=== PATIENT | female | born 1940 | race Caucasian/White ===

== ENCOUNTER 2016-09-16 12:11 | Inpatient (IN) ==
--- NOTE | 2016-09-16 12:54 | Emergency Department Note ---
Disposition Clinical Impression: New onset atrial fibrillation Chest pain Qualifiers: Chest pain type: other chest pain Qualified Code(s): R07.89 - Other chest pain ; R07.8 - Other chest pain Disposition: Admitted As Inpatient Referrals: John Madison Jr, MD [Primary Care Provider] - Forms: ED Satisfaction Letter Chest Pain HPI - General Chief Complaint: ED Chest Pain Stated Complaint: chest pain, roman Time Seen by Provider: 09/16/16 12:14 Source: patient, EMS Limitations: no limitations Vital Signs Reviewed: Yes Nursing Notes Reviewed: Yes - History of Present Illness Pt complaint: chest pain Onset (ago): day(s) (3) Duration: intermittent Onset: during rest Severity scale (1-10): 5 Quality: tightness Pain Radiation: none Improves with: nothing Worsens with: nothing Associated symptoms: Reports: dyspnea Treatments prior to arrival chest pain: none - Related Data Allergies Allergy/AdvReac Type Severity Reaction Status Date / Time Tetracycline AdvReac Difficulty Verified 09/16/16 12:38 Breathing tape AdvReac See Uncoded 09/16/16 12:38 Comments All systems ED: reviewed and negative except as stated. Constitutional: Denies: fever, chills Respiratory: Denies: hemoptysis, stridor Chest Pain PMH - Past Medical History Medical history: Reports: arthritis, asthma, coronary artery disease, diabetes, hyperlipidemia, hypertension Surgical history: Reports: angioplasty/stent - Social History Smoking Status: Never smoker Alcohol use: Reports: none Drug use: Reports: none Physical Exam - General Limitations: no limitations General appearance: alert - Head Head exam: atraumatic, normocephalic, normal inspection - Eye Eye exam: Present: normal appearance, PERRL, EOMI - Expanded Eye Exam Pupils: Left: reactive - ENT ENT exam: normal exam, normal oropharynx, mucous membranes moist - Expanded ENT Exam External ear exam: Present: normal external inspection Mouth exam: Present: normal external inspection Teeth exam: Present: normal inspection Throat exam: Present: normal inspection - Neck Neck exam: Present: normal inspection, full ROM, trachea midline - Chest Chest inspection: Present: normal inspection, symmetric chest wall rise - Respiratory Respiratory exam: Present: normal lung sounds bilaterally - Cardiovascular Cardiovascular exam: Present: tachycardia, irregular rhythm - Abdominal Exam Abdominal exam: Present: soft, Non-Tender. Absent: tenderness, distention, guarding, rebound, rigidity - Extremities Exam Extremities exam: Present: normal inspection, full ROM. Absent: tenderness, pedal edema - Expanded Upper Extremity Exam Shoulder exam: Present: normal inspection, full ROM Arm exam: Present: normal inspection, full ROM Elbow exam: Present: normal inspection, full ROM Forearm/Wrist exam: Present: normal inspection, full ROM Hand exam: Present: normal inspection, full ROM Vascular exam: Normal: capillary refill, radial pulse - Expanded Lower Extremity Exam Hip/Pelvis exam: Present: normal inspection, full ROM Upper leg exam: Present: normal inspection, full ROM Knee exam: Present: normal inspection, full ROM Lower leg exam: Present: normal inspection, full ROM Ankle exam: Present: normal inspection, full ROM Foot/toe exam: Present: normal inspection, full ROM Neurovascular/Tendon exam: Absent: motor deficit, sensory deficit, tendon deficit - Back Exam Back exam: Present: normal inspection, full ROM. Absent: tenderness - Neurological Exam Neurological exam: Present: alert, oriented X3 - Expanded Neurological Exam Patient oriented to: Present: person, place, time Coma Scale Eye Opening: Spontaneous Coma Scale Motor Response: Obeys Commands Coma Scale Verbal Response: Oriented Coma Scale Total: 15 - Psychiatric Psychiatric exam: Present: normal affect, normal mood - Skin Skin exam: Present: warm, dry, intact, normal color Course Vital Signs Temperature 98.3 F 09/16/16 12:12 Pulse Rate 109 09/16/16 12:12 Respiratory Rate 18 09/16/16 12:12 Blood Pressure 91/72 09/16/16 12:12 O2 Sat by Pulse Oximetry 96 09/16/16 12:12 Temperature 98.3 F 09/16/16 12:12 Pulse Rate 113 09/16/16 13:27 Respiratory Rate 18 09/16/16 13:27 Blood Pressure 119/59 09/16/16 13:27 O2 Sat by Pulse Oximetry 94 L 09/16/16 13:27 Oxygen Delivery Oxygen Delivery Nasal Cannula Chest Pain - Differential Diagnosis Likely: stable angina, unstable angina pectoris, atypical chest pain, st elevation myocardial infraction, chest pain - Medical Records Medical records reviewed: Yes I reviewed the patient's medical records. - Lab Data Lab results reviewed: Yes I reviewed the patient's lab results. Result diagrams: 09/16/16 12:54 09/16/16 12:54 Lab Results 09/16/16 09/16/1609/16/17 Range/Units 12:54 12:54 12:54 WBC (4.3-11.1) K/mcL RBC (3.82-4.97) M/mcL Hgb (11.5-15.4) g/dL Hct (35.3-44.9) % MCV (83.0-100.0) fL MCH (28.0-33.3) pg MCHC (31.6-35.5) g/dL RDW (11.5-14.5) % Plt Count (140-400) K/mcL MPV (9.4-12.4) fL Immature Gran % (0-4) % Seg Neutrophils % % Lymphocytes % % Monocytes % % Eosinophils % % Basophils % % Neutrophils # (1.6-8.9) K/mcL Lymphocytes # (0.6-4.6) K/mcL Monocytes # (0.0-1.3) K/mcL Eosinophils # (0.0-0.6) K/mcL Basophils # (0.0-0.2) K/mcL Immature Plt Fraction (1.1-6.1) % PT 11.6 (9.4-12.1) Seconds INR 1.1 APTT 28.3 (26.0-36.0) Seconds Sodium (136-145) mEq/L Potassium (3.5-4.5) mEq/L Chloride (98-109) mEq/L Carbon Dioxide (19-29) mEq/L BUN (7-20) mg/dL Creatinine (0.57-1.11) mg/dL Est GFR ( Amer) (> 60) Est GFR (Non-Af Amer) (> 60) BUN/Creatinine Ratio (6-26) Glucose (70-99) mg/dL Calculated Osmolality (280-300) Calcium (8.6-10.8) mg/dL Troponin I (0-0.03) ng/mL B-Natriuretic Peptide 378 H (0-100) pg/mL Lipase 18 (8-78) Units/L 09/16/16 09/16/16 09/16/16 Range/Units 12:54 12:54 12:54 WBC 13.5 H (4.3-11.1) K/mcL RBC 5.14 H (3.82-4.97) M/mcL Hgb 14.6 (11.5-15.4) g/dL Hct 46.1 H (35.3-44.9) % MCV 89.7 (83.0-100.0) fL MCH 28.4 (28.0-33.3) pg MCHC 31.7 (31.6-35.5) g/dL RDW 14.6 H (11.5-14.5) % Plt Count 214 (140-400) K/mcL MPV 10.6 (9.4-12.4) fL Immature Gran % 0.4 (0-4) % Seg Neutrophils % 82.0 % Lymphocytes % 8.2 % Monocytes % 7.7 % Eosinophils % 1.3 % Basophils % 0.4 % Neutrophils # 11.1 H (1.6-8.9) K/mcL Lymphocytes # 1.1 (0.6-4.6) K/mcL Monocytes # 1.0 (0.0-1.3) K/mcL Eosinophils # 0.2 (0.0-0.6) K/mcL Basophils # 0.1 (0.0-0.2) K/mcL Immature Plt Fraction 2.1 (1.1-6.1) % PT (9.4-12.1) Seconds INR APTT (26.0-36.0) Seconds Sodium 141 (136-145) mEq/L Potassium 4.5 (3.5-4.5) mEq/L Chloride 111 H (98-109) mEq/L Carbon Dioxide 21 (19-29) mEq/L BUN 47 H (7-20) mg/dL Creatinine 1.70 H (0.57-1.11) mg/dL Est GFR ( Amer) 36 L (> 60) Est GFR (Non-Af Amer) 29 L (> 60) BUN/Creatinine Ratio 28 H (6-26) Glucose 237 H (70-99) mg/dL Calculated Osmolality 312 H (280-300) Calcium 8.9 (8.6-10.8) mg/dL Troponin I 0.01 (0-0.03) ng/mL B-Natriuretic Peptide (0-100) pg/mL Lipase (8-78) Units/L - Radiology Data Radiology results reviewed: Yes I reviewed the patient's radiology results. - EKG Data EKG attestation: Yes I reviewed and interpreted this EKG. Rate: tachycardia (118) Rhythm: A.Fib Interpretation: nonspecific ST-T wave changes Critical Care Time Critical Care Time: Yes Total Critical Care Time: 35 Attestation: Critical care performed: Time is exclusive of separately billable procedures. Time includes: direct patient care, patient reassessment, coordination of patient care, interpretation of data (laboratory data, radiology data, and respiratory data), review of patient's medical records, medical consultation and documentation of patient care. Procedures included in critical care time: Procedures excluded from critical care time:
[2016-09-16 13:04] LABS: Basophils # 0.1 K/mcL (0.0-0.2); Basophils % 0.4 %; Eosinophils # 0.2 K/mcL (0.0-0.6); Eosinophils % 1.3 %; Hematocrit 46.1 % (35.3-44.9); Hemoglobin 14.6 g/dL (11.5-15.4); Immature Granulocytes % 0.4 % (0-4); Immature Platelets 2.1 % (1.1-6.1); Lymphocytes # 1.1 K/mcL (0.6-4.6); Lymphocytes % 8.2 %; Mean Corpuscular HGB Conc 31.7 g/dL (31.6-35.5); Mean Corpuscular Hemoglobin 28.4 pg (28.0-33.3); Mean Corpuscular Volume 89.7 fL (83.0-100.0); Mean Platelet Volume 10.6 fL (9.4-12.4); Monocytes % 7.7 %; Neutrophils # 11.1 K/mcL (1.6-8.9); Platelet Count 214 K/mcL (140-400); Red Blood Count 5.14 M/mcL (3.82-4.97); Red Cell Distribution Width 14.6 % (11.5-14.5)
[2016-09-16 13:12] LABS: INR 1.1; Prothrombin Time 11.6 Seconds (9.4-12.1)
[2016-09-16 13:15] LABS: Activated Partial Thrombo Time 28.3 Seconds (26.0-36.0)
[2016-09-16 13:19] LABS: Calcium 8.9 mg/dL (8.6-10.8); Potassium 4.5 mEq/L (3.5-4.5)
[2016-09-16] MEDS ORDERED: *HR* Enoxaparin 120 MG/0.8 ML SYRINGE SQ STA (13:38)
[2016-09-16] MEDS ORDERED: Naloxone 0.4 MG/ML INJ IVP PRN (18:12)
[2016-09-16] MEDS ORDERED: MOM Conc 10 ML UD.LIQ PO PRN (18:12)
[2016-09-16] MEDS ORDERED: *HR* Dextrose 50 % in Water (Syg) 50 ML SYRINGE IVP PRN (18:23)
[2016-09-16] MEDS ORDERED: Dextrose Gel 15 GM PO PRN ×2 (18:23)
[2016-09-16] MEDS ORDERED: D5% in Water 1,000 ML IVC PRN (18:23)
[2016-09-16] MEDS ORDERED: Furosemide 20 MG/2 ML VIAL IVP ONE (18:32)
[2016-09-16] MEDS ORDERED: GI Cocktail 40 ML EACH PO ONE (18:36)
[2016-09-16 19:19] LABS: Hemoglobin A1C 8.6 %
[2016-09-16] MEDS: Insulin LISPRO 300 UNITS/3 ML VIAL SQ SCH (20:16)
--- NOTE | 2016-09-16 21:29 | Internal Med History&Physical ---
<Yarelis Almanza - Last Filed: 09/17/16 00:43> Date of Encounter: 09/16/16 Time of Encounter: 21:22 Assessment and Plan (1) Chest pain Current visit: Yes Status: Acute Patient complaining of chest pain and shortness of breath for 3 days. She was found to be in afib with RVR, however, she reverted to normal sinus spontaneously, and her chest pain persists. Troponin negative at 0.01. BNP elevated at 378. Differential includes acid reflux, CHF, and ACS continuous medical lab director serial troponins echocardiogram one time dose of GI cocktail ordered, and omeprazole daily started. 20mg of lasix IVP once ordered. Qualifiers: Chest pain type: precordial pain Qualified Code(s): R07.2 - Precordial pain (2) Type 2 diabetes mellitus Current visit: Yes Status: Acute Not well controlled as evidenced by Hgb A1c of diabetic, heart healthy diet check blood sugars ACHS continue home basal dose of insulin 9u Levemir BID 30u Lantus TIDWM plus sliding scale correction dose ACHS hypoglycemic protocol. Qualifiers: Diabetes mellitus complication status: with kidney complications Diabetes mellitus complication detail: with chronic kidney disease Diabetes mellitus intermediate project manager insulin use: with custodial use Chronic kidney disease stage: stage 3 (moderate) Qualified Code(s): E11.22 - Type 2 diabetes mellitus with diabetic chronic kidney disease; N18.3 - Chronic kidney disease, stage 3 ( moderate); Z79.4 - exterminator helper termite (current) use of insulin (3) New onset atrial fibrillation Current visit: Yes Status: Acute Patient reporting chest pain and SOB for last 3 days. EKG revealed Afib with RVR, however she returned to sinus rhythm spontaneously. Weight based lovenox given in ED. Continuous medical lab director. If she reverts to afib, will start cardizem drip. Cardiology consulted for anticoagulation recommendations. (4) Chronic kidney disease Current visit: Yes Status: Acute Patient with Cr of 1.7 today. 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 Chart review revealed Creatinine of 1.5-1.6 in 2013, so 1.7 is not off from previous baseline. Avoid NSAIDs and nephrotoxins She would benefit from outpatient follow up with nephrology. Qualifiers: Chronic kidney disease stage: stage 3 (moderate) Qualified Code(s): N18.3 - Chronic kidney disease, stage 3 (moderate) (5) Sleep apnea Current visit: Yes Status: Acute Respiratory therapy consulted for CPAP. Qualifiers: Sleep apnea type: obstructive Qualified Code(s): G47.33 - Obstructive sleep apnea (adult) (pediatric) (6) Leukocytosis Current visit: Yes Status: Acute Patient with WBC of 13.5. Afebrile. CXR not concerning for pneumonia. May be reactive, but UA with culture ordered. Qualifiers: Leukocytosis type: unspecified Qualified Code(s): D72.829 - Elevated white blood cell count, unspecified (7) DVT prophylaxis Current visit: Yes Status: Acute Up to chair BID anti-embolic stockings Patient received a weight based dose of lovenox in ED for her new Afib. Internal Medicine - H&P: HPI Chief complaint: chest pain Admitted From: Emergency Dept Plans for Post Hospital Care: Home History of present illness: Ms. Diaz is a 76 year old female with COPD, coronary artery disease, type 2 diabetes, hypertension, hyperlipidemia, chronic kidney disease presented to the emergency department today with complaint of chest pain and shortness of breath for 3 days. She reports she has constant dull ache in the middle of her chest with occasional increase in pain that is sharp and radiates to her left jaw. She also reports fatigue, headache, postnasal drip, and nausea. She denies any abdominal pain, diarrhea, lightheadedness, palpitations, cough. She denies any fever, chills, sweats. Evaluation in the emergency department included a chest x-ray which showed pulmonary congestion. White blood cell count was elevated to 13.5. Creatinine was 1.7, but consistent with her baseline creatinine of 1.6 from 2013 and with her history of chronic kidney disease. BNP was elevated at 378. Troponin was negative at 0.01. EKG showed patient was in A. fib with RVR, but returned to sinus rhythm spontaneously. On exam, patient is morbidly obese, no acute distress, alert and oriented. Heart has regular rhythm and rate at this time. Past Med Surg Social Fam HX - Past Medical History Medical history: arthritis, asthma, coronary artery disease, diabetes, hyperlipidemia, hypertension - Past Surgical History Surgical History: angioplasty/stent, appendectomy, cholecystectomy - Social History Smoking Status: Never smoker Smokeless Tobacco Status: No Alcohol use: none Drug use: none - Family History Mother Daughter Living Status: Age at : 96 Cause of : "old age" dementia Father Living Status: Age at : 21 Cause of : WWII Internal Medicine - H&P: Meds Amlodipine [Norvasc] 5 mg PO DAILY 09/16/16 [History] Aspirin 81 mg PO DAILY 09/16/16 [History] Atenolol/Chlorthalidone [Tenoretic 50 Tablet] 1 tab PO DAILY 09/16/16 [History] Calcitriol [Rocaltrol] 0.25 mcg PO DAILY 09/16/16 [History] Captopril [Captopril] 50 mg PO DAILY 09/16/16 [History] Cyclobenzaprine [Flexeril] 10 mg PO BID 09/16/16 [History] Duloxetine HCl [Cymbalta] 60 mg PO DAILY 09/16/16 [History] Ergocalciferol (VITAMIN D2) [Vitamin D2] 50,000 unit PO QWEEK 09/16/16 [History] HYDROcodone/Acet 10/325 mg [[place] 10-325 mg] 1 tab PO BID PRN 09/16/16 [History] Insulin Glargine,Hum.rec.anlog [Lantus Solostar] 9 unit SQ BID 09/16/16 [History ] Insulin LISPRO [Humalog] 40 unit SQ TID 09/16/16 [History] Isosorbide MONOnitrate (24 HR) [Imdur] 60 mg PO DAILY 09/16/16 [History] Levothyroxine Sodium [Levo-T] 200 mcg PO DAILY 09/16/16 [History] Simvastatin [Zocor] 40 mg PO DAILY 09/16/16 [History] Zolpidem [Ambien] 10 mg PO HS 09/16/16 [History] Allergies Tetracycline Adverse Reaction (Verified 09/16/16 12:38) Difficulty Breathing tape Adverse Reaction (Uncoded 09/16/16 12:38) See Comments All Systems PM: A 10-system review of systems was performed and is negative for pertinent findings except as documented above in the HPI. - Constitutional Constitutional: no chills, no fever(s), no night sweats - EENT Eyes: no change in vision, no discharge, no pain, no photophobia Ears: no ear discharge, no ear pain, no tinnitus Nose, mouth and throat: post-nasal drip, no dysphagia, no nasal discharge, no neck pain, no sore throat - Cardiovascular Cardiovascular ROS IM: chest pain, dyspnea, no diaphoresis, no lightheadedness, no palpitations, no syncope - Respiratory Respiratory: dyspnea, no cough, no wheezing, no excessive phlegm production - Gastrointestinal Gastrointestinal: no abdominal pain, no diarrhea, no hematemesis, no hematochezia, no melena, no nausea, no vomiting - Genitourinary Genitourinary: no change in urinary stream, no dysuria, no flank pain, no hematuria - Musculoskeletal Musculoskeletal ROS IM: no numbness, no tingling - Integumentary Integumentary IM: no rash, no unusual bruising - Neurological Neurological ROS: no confusion, no convulsions, no focal weakness, no numbness, no tingling, no tremor(s) - Hematologic/Lymphatic Hematologic/Lymphatic: no easy bruising - Constitutional Vitals: Temp Pulse Resp BP Pulse Ox 98.3 F 85 16 119/74 100 09/16/16 15:06 09/16/16 15:06 09/16/16 15:06 09/16/16 15:06 09/16/16 15:06 General appearance: Present: A&O X 3, morbidly obese, pleasant, no acute distress - Head Head exam: Present: atraumatic, normocephalic - Eye Eye exam: Present: PERRL, conjuntiva pink, sclera anicteric Pupils: Present: PERRL - Neck Neck exam general surgery: Present: supple, trachea midline. Absent: lymphadenopathy - Respiratory Respiratory exam: Present: decreased breath sounds, CTAB. Absent: accessory muscle use, rales, rhonchi, wheezes - Cardiovascular Cardiovascular exam: Present: RRR, +S1, +S2. Absent: diastolic murmur, gallop, rubs, systolic murmur - GI/Abdominal GI/Abdominal exam: Present: normal bowel sounds, soft, no peritoneal signs. Absent: distended, tenderness - Extremities Exam Extremities exam: Present: warm, radial pulses palpable and symetrical. Absent : calf tenderness, cyanotic, pedal edema - Neurological Exam Neurological exam: Present: CN II-XII intact, oriented X3, no focal deficits. Absent: facial droop, speech deficit - Skin Skin exam: Present: dry, intact Internal Med - H&P Results - Labs CBC & Chem 7: 09/16/16 12:54 09/16/16 12:54 Labs: Cardiac Enzymes All Lab Results (24 Hours) 09/16/16 09/16/16 09/16/16 Range/Units 12:54 12:54 12:54 WBC (4.3-11.1) K/mcL RBC (3.82-4.97) M/mcL Hgb (11.5-15.4) g/dL Hct (35.3-44.9) % MCV (83.0-100.0) fL MCH (28.0-33.3) pg MCHC (31.6-35.5) g/dL RDW (11.5-14.5) % Plt Count (140-400) K/mcL MPV (9.4-12.4) fL Immature Gran % (0-4) % Seg Neutrophils % % Lymphocytes % % Monocytes % % Eosinophils % % Basophils % % Neutrophils # (1.6-8.9) K/mcL Lymphocytes # (0.6-4.6) K/mcL Monocytes # (0.0-1.3) K/mcL Eosinophils # (0.0-0.6) K/mcL Basophils # (0.0-0.2) K/mcL Immature Plt Fraction (1.1-6.1) % PT 11.6 (9.4-12.1) Seconds INR 1.1 APTT 28.3 (26.0-36.0) Seconds Sodium (136-145) mEq/L Potassium (3.5-4.5) mEq/L Chloride (98-109) mEq/L Carbon Dioxide (19-29) mEq/L BUN (7-20) mg/dL Creatinine (0.57-1.11) mg/dL Est GFR ( Amer) (> 60) Est GFR (Non-Af Amer) (> 60) BUN/Creatinine Ratio (6-26) Glucose (70-99) mg/dL Est Mean Plasma Glucose mg/dl Hemoglobin A1c ( - 5.6) % Calculated Osmolality (280-300) Calcium (8.6-10.8) mg/dL Troponin I (0-0.03) ng/mL B-Natriuretic Peptide 378 H (0-100) pg/mL Lipase 18 (8-78) Units/L TSH (0.350-4.840) mcIU/mL 09/16/16 09/16/16 09/16/16 Range/Units 12:54 12:54 12:54 WBC 13.5 H (4.3-11.1) K/mcL RBC 5.14 H (3.82-4.97) M/mcL Hgb 14.6 (11.5-15.4) g/dL Hct 46.1 H (35.3-44.9) % MCV 89.7 (83.0-100.0) fL MCH 28.4 (28.0-33.3) pg MCHC 31.7 (31.6-35.5) g/dL RDW 14.6 H (11.5-14.5) % Plt Count 214 (140-400) K/mcL MPV 10.6 (9.4-12.4) fL Immature Gran % 0.4 (0-4) % Seg Neutrophils % 82.0 % Lymphocytes % 8.2 % Monocytes % 7.7 % Eosinophils % 1.3 % Basophils % 0.4 % Neutrophils # 11.1 H (1.6-8.9) K/mcL Lymphocytes # 1.1 (0.6-4.6) K/mcL Monocytes # 1.0 (0.0-1.3) K/mcL Eosinophils # 0.2 (0.0-0.6) K/mcL Basophils # 0.1 (0.0-0.2) K/mcL Immature Plt Fraction 2.1 (1.1-6.1) % PT (9.4-12.1) Seconds INR APTT (26.0-36.0) Seconds Sodium 141 (136-145) mEq/L Potassium 4.5 (3.5-4.5) mEq/L Chloride 111 H (98-109) mEq/L Carbon Dioxide 21 (19-29) mEq/L BUN 47 H (7-20) mg/dL Creatinine 1.70 H (0.57-1.11) mg/dL Est GFR ( Amer) 36 L (> 60) Est GFR (Non-Af Amer) 29 L (> 60) BUN/Creatinine Ratio 28 H (6-26) Glucose 237 H (70-99) mg/dL Est Mean Plasma Glucose mg/dl Hemoglobin A1c ( - 5.6) % Calculated Osmolality 312 H (280-300) Calcium 8.9 (8.6-10.8) mg/dL Troponin I 0.01 (0-0.03) ng/mL B-Natriuretic Peptide (0-100) pg/mL Lipase (8-78) Units/L TSH (0.350-4.840) mcIU/mL 09/16/16 09/16/16 09/16/16 Range/Units 18:56 18:56 19:59 WBC (4.3-11.1) K/mcL RBC (3.82-4.97) M/mcL Hgb (11.5-15.4) g/dL Hct (35.3-44.9) % MCV (83.0-100.0) fL MCH (28.0-33.3) pg MCHC (31.6-35.5) g/dL RDW (11.5-14.5) % Plt Count (140-400) K/mcL MPV (9.4-12.4) fL Immature Gran % (0-4) % Seg Neutrophils % % Lymphocytes % % Monocytes % % Eosinophils % % Basophils % % Neutrophils # (1.6-8.9) K/mcL Lymphocytes # (0.6-4.6) K/mcL Monocytes # (0.0-1.3) K/mcL Eosinophils # (0.0-0.6) K/mcL Basophils # (0.0-0.2) K/mcL Immature Plt Fraction (1.1-6.1) % PT (9.4-12.1) Seconds INR APTT (26.0-36.0) Seconds Sodium (136-145) mEq/L Potassium (3.5-4.5) mEq/L Chloride (98-109) mEq/L Carbon Dioxide (19-29) mEq/L BUN (7-20) mg/dL Creatinine (0.57-1.11) mg/dL Est GFR ( Amer) (> 60) Est GFR (Non-Af Amer) (> 60) BUN/Creatinine Ratio (6-26) Glucose (70-99) mg/dL Est Mean Plasma Glucose 200 mg/dl Hemoglobin A1c 8.6 H ( - 5.6) % Calculated Osmolality (280-300) Calcium (8.6-10.8) mg/dL Troponin I 0.01 (0-0.03) ng/mL B-Natriuretic Peptide (0-100) pg/mL Lipase (8-78) Units/L TSH 0.026 L (0.350-4.840) mcIU/mL - Diagnostic Studies Chest x-ray Additional comments: Chest X-Ray 09/16/16 12:14 IMPRESSION: 1. Moderate cardiomegaly with mild vascular congestive changes. 2. Chronic asymmetric elevation of the right diaphragm. D/ / 09/16/2016 13:01:58 Parish Morrissey MD / Marbella Krishnan Interpreting Provider: Parish Morrissey MD <Bernabe Edmondson - Last Filed: 09/17/16 04:59> Internal Medicine - H&P: HPI History of present illness: Ms. Diaz is a 76 year old female All Systems PM: A 10-system review of systems was performed and is negative for pertinent findings except as documented above in the HPI. - Constitutional Vitals: Temp Pulse Resp BP Pulse Ox 98.6 F 80 25 107/57 99 09/17/16 00:00 09/17/16 00:00 09/17/16 00:43 09/17/16 00:00 09/17/16 00:43 Internal Med - H&P Results - Labs CBC & Chem 7: 09/17/16 01:18 09/16/16 12:54 Labs: Short CBC 09/17/16 Range/Units 01:18 WBC 10.6 (4.3-11.1) K/mcL Hgb 13.3 (11.5-15.4) g/dL Hct 41.7 (35.3-44.9) % Plt Count 191 (140-400) K/mcL Neutrophils # 7.1 (1.6-8.9) K/mcL Cardiac Enzymes 09/16/16 09/17/16 Range/Units 18:56 01:18 Troponin I 0.01 0.00 (0-0.03) ng/mL - Attending Attestation I examined this patient and my medical decision-making was reviewed with the BRANCH MECHANIC/PA/Advanced Practice Nurse/Resident Physician. I agree with the documented findings, disposition and treatment plan as described except to the extent set forth below. Chest pain, new onset A. fib. cardiology consultation. Telemetry monitoring.
[2016-09-16] MEDS: Insulin DETEMIR 100 UNIT/ML X5UNITS SQ SCH (22:31)
[2016-09-17] MEDS: Insulin LISPRO 300 UNITS/3 ML VIAL SQ SCH ×8 (00:16→22:16)
[2016-09-17] MEDS: *HR* Heparin 5,000 UNIT/ML VIAL SQ SCH ×2 (00:18→08:27)
[2016-09-17 01:29] LABS: Basophils % 0.3 %; Eosinophils # 0.2 K/mcL (0.0-0.6); Eosinophils % 1.4 %; Hematocrit 41.7 % (35.3-44.9); Hemoglobin 13.3 g/dL (11.5-15.4); Immature Granulocytes % 0.4 % (0-4); Lymphocytes # 2.1 K/mcL (0.6-4.6); Lymphocytes % 19.4 %; Mean Corpuscular HGB Conc 31.9 g/dL (31.6-35.5); Mean Corpuscular Hemoglobin 28.5 pg (28.0-33.3); Mean Corpuscular Volume 89.5 fL (83.0-100.0); Mean Platelet Volume 10.7 fL (9.4-12.4); Monocytes # 1.2 K/mcL (0.0-1.3); Monocytes % 11.1 %; Neutrophils # 7.1 K/mcL (1.6-8.9); Platelet Count 191 K/mcL (140-400); Red Blood Count 4.66 M/mcL (3.82-4.97); Red Cell Distribution Width 14.7 % (11.5-14.5); Segmented Neutrophils % 67.4 %
[2016-09-17] MEDS ORDERED: Insulin LISPRO 300 UNITS/3 ML VIAL SQ SCH (08:00)
[2016-09-17] MEDS: Isosorbide MONOnitrate (24 HR) 60 MG TAB.ER.24H PO SCH (08:25)
[2016-09-17] MEDS: Aspirin 81 MG TAB.CHEW PO SCH (08:26)
[2016-09-17] MEDS: amLODIPine 5 MG TABLET PO SCH (08:26)
[2016-09-17] MEDS: Insulin DETEMIR 100 UNIT/ML X5UNITS SQ SCH ×2 (08:29→22:08)
[2016-09-17] MEDS: CAPTOPRIL 50 MG PO SCH (08:40)
[2016-09-17] MEDS ORDERED: (Atenolol/Chlorthalidone [Tenoretic 50 Tablet] 1 TAB) PO SCH (09:00)
--- NOTE | 2016-09-17 11:22 | Cardiology Consult Note ---
Date of Encounter: 09/17/16 Time of Encounter: 11:18 Assessment and Plan (1) New onset atrial fibrillation Current Visit: Yes Status: Acute New onset of paroxysmal atrial fibrillation. Telemetry review shows average heart rate 88 bpm, one 7 beat run of SVT, runs of paroxysmal atrial fibrillation. During my exam the patient was initially in normal sinus rhythm and converted to atrial fibrillation with a heart rate in the 90s. She complained of chest pain at that time. She may be symptomatic with her atrial fibrillation. We will DC her atenolol/chlorthalidone and start Cardizem. Increase Cardizem as needed. She is a CHADS VASc=6 (HTN, AGE,gender, diabetes, CAD). Anticoagulation with Coumadin or a NOAC is recommended. Indication, side effects, and use discussed. She does have a fall risk. Ways to minimize fall was discussed. She would like to take anticoagulation. We will start eliquis 5 mg BID. Check TTE. TSH is low- your recommendations are appreciated. (2) Chest pain Current Visit: Yes Status: Acute Atypical chest pain is somewhat reproducible on my exam. Troponins are negative. EKG shows no acute changes. Check TTE. Qualifiers: Chest pain type: precordial pain Qualified Code(s): R07.2 - Precordial pain (3) CAD (coronary artery disease) Current Visit: No Status: Chronic H/o IA and previous PTCA. Continue asa and statin. Changing bb to CCB for better control of afib. Qualifiers: Coronary Disease-Associated Artery/Lesion type: [place] artery [place] vs. transplanted heart: ruby heart Associated angina: angina presence unspecified Qualified Code(s): I25.10 - Atherosclerotic heart disease of [place] coronary artery without angina pectoris Discussion w patient/family: The assessment and plan as outlined above was discussed with the patient and/or family members who expressed understanding and agreement. All questions were answered. Thank you for involving us in the care of your patient. Please call with any questions. History of Present Illness Consult date: 09/17/16 Requesting physician: Bernabe Edmondson Consult reason: New onset atrial fibrillation Chief complaint: Chest pain, fatigue History of present illness: Ms. Diaz is a 76 year old female with a history of CAD status post IA in 2004, status post previous angioplasty in 1989 and 2004, hypertension, hyperlipidemia, diabetes type 2, morbid obesity, sleep apnea who presented with chest pain, shortness of breath, and fatigue. She complains of a midsternal chest heaviness radiating to her left shoulder that occurs at rest and increases with activity. Her discomfort increases with deep breaths and palpation. She reports she has been very tired and sleeps all day long. She presented to the ER where she was found to be in atrial fibrillation with mild RVR. She converted to normal sinus rhythm on her own. She denies previous history of atrial fibrillation. Past Med Surg Social Fam HX - Past Medical History Attestation: Yes The following information was validated with the patient. Medical history: arthritis, asthma, coronary artery disease, diabetes, hyperlipidemia, hypertension, myocardial infarction - Past Surgical History Surgical History: angioplasty/stent, appendectomy, cholecystectomy - Social History Smoking Status: Never smoker Smokeless Tobacco Status: No Alcohol use: none Drug use: none - Family History Mother Daughter Living Status: Age at : 96 Cause of : "old age" dementia Father Living Status: Age at : 21 Cause of : WWII Medications and Allergies Amlodipine [Norvasc] 5 mg PO DAILY 09/16/16 [History] Aspirin 81 mg PO DAILY 09/16/16 [History] Atenolol/Chlorthalidone [Tenoretic 50 Tablet] 1 tab PO DAILY 09/16/16 [History] Calcitriol [Rocaltrol] 0.25 mcg PO DAILY 09/16/16 [History] Captopril [Captopril] 50 mg PO DAILY 09/16/16 [History] Cyclobenzaprine [Flexeril] 10 mg PO BID 09/16/16 [History] Duloxetine HCl [Cymbalta] 60 mg PO DAILY 09/16/16 [History] Ergocalciferol (VITAMIN D2) [Vitamin D2] 50,000 unit PO QWEEK 09/16/16 [History] HYDROcodone/Acet 10/325 mg [[place] 10-325 mg] 1 tab PO BID PRN 09/16/16 [History] Insulin Glargine,Hum.rec.anlog [Lantus Solostar] 9 unit SQ BID 09/16/16 [History ] Insulin LISPRO [Humalog] 40 unit SQ TID 09/16/16 [History] Isosorbide MONOnitrate (24 HR) [Imdur] 60 mg PO DAILY 09/16/16 [History] Levothyroxine Sodium [Levo-T] 200 mcg PO DAILY 09/16/16 [History] Simvastatin [Zocor] 40 mg PO DAILY 09/16/16 [History] Zolpidem [Ambien] 10 mg PO HS 09/16/16 [History] Allergies Tetracycline Adverse Reaction (Verified 09/16/16 12:38) Difficulty Breathing tape Adverse Reaction (Uncoded 09/16/16 12:38) See Comments All Systems Review: A 10-system review of systems was performed and is negative for pertinent findings except as documented above in the HPI. Physical Examination Vital Signs, Last 4 Hours Temp Pulse Resp BP Pulse Ox 09/17/16 07:26 98.3 F 78 19 127/64 96 General: Conversant, No Apparent Distress, Other (Morbidly obese female) HEENT: Atraumatic, Normocephaly, Mucus Membranes Moist Neck: No JVD, Normal carotid pulses Cardiac: Other (Irregularly irregular) Lungs: Normal Breath Sounds, No Wheeze, Rales, Rhonchi Neuro: Alert and responsive, No focal deficits noted Abdomen: Soft, Non-Tender Skin: No rashes noted on visualized skin Musculoskeletal: Other (Chest wall tender to palpation) Extremities: No Clubbing, No Cyanosis, No Edema, Normal Pulses Results 09/17/16 01:18 09/16/16 12:54 Lab Results 09/16/16 09/16/16 09/17/16 18:56 19:59 01:18 WBC Hgb Hct Plt Count Troponin I 0.01 0.00 TSH 0.026 L 09/17/16 01:18 WBC 10.6 Hgb 13.3 Hct 41.7 Plt Count 191 Troponin I TSH - Imaging and Cardiology Echo: pending - EKG Interpretation EKG results cardiology: personally reviewed (Atrial fibrillation with RVR, heart rate 118 bpm, no acute ST changes.) Consult Discharge Plan - Plan Instructions: Atrial Fibrillation (DC), Chest Pain (DC), Diabetes Mellitus Type 2 in Adults (DC)
[2016-09-17] MEDS ORDERED: Diltiazem CD (24hr) 120 MG CAPSULE PO SCH (11:30)
--- NOTE | 2016-09-17 12:24 | ECHO - Doppler Report ---
Echocardiogram Name: Rima Diaz Date of Study: 09/17/2016 Date: 1940 Ht: 64.0 in Medical Record#: [id number] Age: 76 Wt: 391.0 lb Gender: Female BSA: 2.6 Order #: [id number] Location: [facility] Room #: 2NE22 Reading Physician: Dhruv Castro MD, [facility] Skimmer Scoop Operator: Jennifer Joyner Ordering Physician: Yarelis Almanza CNP Primary Physician: John Madison MD Indications: Chest pain Impressions: Technically suboptimal study due to poor echocardiographic windows. Sinus rhythm with paroxysmal atrial fibrillation. Normal LV systolic function, LVEF 55-60%. Mild left ventricular diastolic dysfunction. Normal right ventricular size and function. Mild mitral regurgitation. Unable to estimate RVSP due to lack of TR jet. Left Ventricular Wall Motion: Rest Echo Findings All wall segments showed normal motion. Findings: Study Quality * Technically suboptimal study due to poor echocardiographic windows. ECG Findings * Sinus rhythm with paroxysmal atrial fibrillation. Left Ventricle * Normal LV systolic function, LVEF 55-60%. * Normal LV chamber size and wall thickness. * Mild left ventricular diastolic dysfunction. Right Ventricle * Normal right ventricular size and function. Left Atrium * Normal left atrial size. Right Atrium * Normal right atrial size. Aorta * Normally sized aortic root. Pericardium * There is no pericardial effusion present. IVC * The IVC is not dilated. Aortic Valve * Aortic valve not well visualized. * No aortic stenosis. * No aortic regurgitation. Mitral Valve * Mild mitral annular calcification * No mitral stenosis. * Mild mitral regurgitation. Tricuspid Valve * Tricuspid valve not well visualized. * No tricuspid stenosis. * Trace tricuspid regurgitation. * Unable to estimate RVSP due to lack of TR jet. Pulmonic Valve * Pulmonic valve not well visualized. * No pulmonic stenosis. * Trace pulmonic regurgitation. History Hypertension Diabetes Hypercholesteremia Years 10 Packs 1 08/23/2012 a Previous Echo was performed. Measurements: BP: 127/ 64 2D Normal Values RVIDd: 3.00 cm IVSd: 1.00 cm 0.6 - 1.0 cm LVIDd: 5.20 cm 3.7 - 5.6 cm LVPWd: 1.00 cm 0.6 - 1.1 cm LVIDs: 3.80 cm 1.5 - 3.6 cm AO: 3.20 cm < 4.0 cm LA volume: 62 Updated by Dhruv Castro MD, [facility] on 09/17/2016 12:20:55 PM electronically signed on 09/17/2016 12:21:30 PM with status of Final Wall Motion [place]ño: 1=Normal, 2=Hypokinesis, 3=Akinesis, 4=Dyskinesis, 5=Aneurysmal, 6=Hyperkinetic, X=Not Visualized (Blank)=Missing
[2016-09-17 13:12] LABS: Bilirubin,Urine Negative (Negative); Blood,Urine Small (Negative); Clarity,Urine Cloudy (Clear); Color,Urine Yellow (Yellow); Glucose,Urine (UA) Normal (Normal); Ketones,Urine Negative (Negative); Leukocyte Esterase,Urine Large (Negative); Nitrite,Urine Negative (Negative); Protein,Urine Negative (Neg-Trace); Specific Gravity,Urine 1.018 (1.010-1.025); Urobilinogen,Urine Normal (Normal)
[2016-09-17 13:15] LABS: Bacteria,Urine Moderate per hpf (None-Few); Hyaline Casts,Urine None Seen per lpf (None-Few); Squamous Epithelial Cell,Urine Many per lpf (None-Few); WBC,Urine TNTC per hpf (0-3)
[2016-09-17] MEDS: Furosemide 20 MG TABLET PO SCH (13:33)
[2016-09-17] MEDS: Metoprolol XL (24 HR) Succ 25 MG TAB.ER.24H PO SCH (13:34)
--- NOTE | 2016-09-17 15:06 | Internal Med Progress Note ---
Date of Encounter: 09/17/16 Time of Encounter: 15:06 - Assessment and plan (1) Morbid obesity with BMI of 60.0-69.9, adult Current Visit: Yes Status: Acute Assessment and plan: Outpatient follow-up for weight loss regimen. Bariatric bed. (2) New onset atrial fibrillation Current Visit: Yes Status: Acute Assessment and plan: Discussed the case with cardiology. Start metoprolol and Eliquis. Continue monitoring on telemetry. Follow-up echocardiogram. (3) Type 2 diabetes mellitus Current Visit: Yes Status: Acute Assessment and plan: Insulin Levemir and insulin sliding scale. Qualifiers: Diabetes mellitus complication status: with kidney complications Diabetes mellitus complication detail: with chronic kidney disease Diabetes mellitus supervisor intermediates insulin use: with supervisor intermediates use Chronic kidney disease stage: stage 3 (moderate) Qualified Code(s): E11.22 - Type 2 diabetes mellitus with diabetic chronic kidney disease; N18.3 - Chronic kidney disease, stage 3 ( moderate); Z79.4 - termite treater helper (current) use of insulin (4) Chronic kidney disease Current Visit: Yes Status: Acute Qualifiers: Chronic kidney disease stage: stage 3 (moderate) Qualified Code(s): N18.3 - Chronic kidney disease, stage 3 (moderate) (5) CAD (coronary artery disease) Current Visit: No Status: Chronic Qualifiers: Coronary Disease-Associated Artery/Lesion type: [place] artery [place] vs. transplanted heart: [place] heart Associated angina: angina presence unspecified Qualified Code(s): I25.10 - Atherosclerotic heart disease of [place] coronary artery without angina pectoris (6) Hypothyroidism Current Visit: Yes Status: Acute Assessment and plan: TSH is low. I will check free T4 and T3. Qualifiers: Hypothyroidism type: acquired Qualified Code(s): E03.9 - Hypothyroidism, unspecified - Subjective Interval history: Feels nauseated, no vomiting or abd pain. Denies CP, palpitations. HR now controlled - Constitutional Vitals: Temp Pulse Resp BP Pulse Ox 97.5 F L 87 17 116/61 95 09/17/16 11:45 09/17/16 11:45 09/17/16 11:45 09/17/16 11:45 09/17/16 11:45 General appearance: Present: A&O X 3, morbidly obese, pleasant, no acute distress Exam: Morbidly obese - Respiratory Respiratory exam: Present: CTAB. Absent: accessory muscle use, rales, rhonchi, wheezes - Cardiovascular Cardiovascular exam: Present: RRR, +S1, +S2. Absent: diastolic murmur, gallop, rubs, systolic murmur - GI/Abdominal GI/Abdominal exam: Present: normal bowel sounds, soft, no peritoneal signs. Absent: distended, tenderness Additional comments: Large abdominal pannus - Extremities Exam Extremities exam: Present: warm, radial pulses palpable and symetrical. Absent : calf tenderness, cyanotic, pedal edema - Skin Skin exam: Present: dry, intact Internal Medicine: Result - Labs CBC & Chem 7: 09/17/16 01:18 09/16/16 12:54 Labs: Short CBC 09/17/16 Range/Units 01:18 WBC 10.6 (4.3-11.1) K/mcL Hgb 13.3 (11.5-15.4) g/dL Hct 41.7 (35.3-44.9) % Plt Count 191 (140-400) K/mcL Neutrophils # 7.1 (1.6-8.9) K/mcL Cardiac Enzymes 09/16/16 09/17/16 Range/Units 18:56 01:18 Troponin I 0.01 0.00 (0-0.03) ng/mL Urine 09/17/16 Range/Units 12:45 Urine Color Yellow (Yellow) Urine Clarity Cloudy A (Clear) Urine pH 6.0 (5.0-8.0) pH Units Ur Specific [place] 1.018 (1.010-1.025) Urine Protein Negative (Neg-Trace) mg/dL Urine Glucose (UA) Normal (Normal) mg/dL - ABG Interpretation ABG results: PT/INR, D-dimer PT 11.6 Seconds (9.4-12.1) 09/16/16 12:54 Consult Discharge Plan - Plan Instructions: Atrial Fibrillation (DC), Chest Pain (DC), Diabetes Mellitus Type 2 in Adults (DC) Referrals: John Madison Jr, MD [Primary Care Provider] -
[2016-09-17] MEDS: Ondansetron ODT 4 MG TAB.RAPDIS SL PRN (15:54)
[2016-09-17 16:02] LABS: Renal Epithelial Cells,Urine Few per hpf (None-Few)
[2016-09-17 17:01] LABS: Triiodothyronine (T3) Free 2.2 pg/mL (1.71-3.71); Triiodothyronine (T3) Total 0.5 ng/mL (0.58-1.59)
[2016-09-17] MEDS: APIXABAN 5 MG TABLET PO SCH (22:08)
[2016-09-17] MEDS: *HR* HYDROcodone/Acet 10/325 mg TABLET PO PRN (22:12)
[2016-09-18 07:27] LABS: Calcium 9.2 mg/dL (8.6-10.8); Potassium 4.6 mEq/L (3.5-4.5)
[2016-09-18 07:28] LABS: Basophils % 0.2 %; Eosinophils # 0.3 K/mcL (0.0-0.6); Hematocrit 44.6 % (35.3-44.9); Hemoglobin 14.2 g/dL (11.5-15.4); Immature Granulocytes % 0.5 % (0-4); Lymphocytes # 2.3 K/mcL (0.6-4.6); Mean Corpuscular HGB Conc 31.8 g/dL (31.6-35.5); Mean Corpuscular Hemoglobin 28.6 pg (28.0-33.3); Mean Corpuscular Volume 89.7 fL (83.0-100.0); Mean Platelet Volume 10.8 fL (9.4-12.4); Monocytes # 0.9 K/mcL (0.0-1.3); Monocytes % 10.6 %; Platelet Count 205 K/mcL (140-400); Red Blood Count 4.97 M/mcL (3.82-4.97); Red Cell Distribution Width 14.2 % (11.5-14.5); Segmented Neutrophils % 58.7 %
--- NOTE | 2016-09-18 07:40 | Electrocardiograph Report ---
[place] [id number] Test Date: 2016-09-16 Pat Name: Rima Diaz Department: 104 Room: 2NE22 Gender: F Microfilm Mounter: : 1940 Requested By: Kvng Rodrigues Order Number: [id number] Reading MD: Dallas Ruelas MD Measurements Intervals [employer] Rate: 118 P: [place]: 0 QRS: 14 QRSD: 85 T: 26 QT: 298 QTc: 368 Interpretive Statements ATRIAL FIBRILLATION WITH RAPID VENTRICULAR RESPONSE Electronically Signed On 09-18-2016 7:38:59 EDT by Dallas Ruelas MD
[2016-09-18] MEDS: Insulin LISPRO 300 UNITS/3 ML VIAL SQ SCH ×7 (08:08→21:01)
[2016-09-18] MEDS: Aspirin 81 MG TAB.CHEW PO SCH (10:13)
[2016-09-18] MEDS: amLODIPine 5 MG TABLET PO SCH (10:14)
[2016-09-18] MEDS: Furosemide 20 MG TABLET PO SCH (10:14)
[2016-09-18] MEDS: APIXABAN 5 MG TABLET PO SCH ×2 (10:14→20:27)
[2016-09-18] MEDS: Isosorbide MONOnitrate (24 HR) 60 MG TAB.ER.24H PO SCH (10:14)
[2016-09-18] MEDS: Metoprolol XL (24 HR) Succ 25 MG TAB.ER.24H PO SCH (10:14)
[2016-09-18] MEDS: CAPTOPRIL 50 MG PO SCH (10:19)
[2016-09-18] MEDS: Insulin DETEMIR 100 UNIT/ML X5UNITS SQ SCH ×2 (10:19→20:59)
--- NOTE | 2016-09-18 17:51 | Internal Med Progress Note ---
Date of Encounter: 09/18/16 Time of Encounter: 17:49 - Assessment and plan (1) Morbid obesity with BMI of 60.0-69.9, adult Current Visit: Yes Status: Acute Assessment and plan: Outpatient follow-up for weight loss regimen. Bariatric bed. (2) New onset atrial fibrillation Current Visit: Yes Status: Acute Assessment and plan: Discussed the case with cardiology. Increase metoprolol to 50 mg twice a day. Continue with liquids. Monitor on telemetry. ct eliquis> (3) Type 2 diabetes mellitus Current Visit: Yes Status: Acute Assessment and plan: Insulin Levemir and insulin sliding scale. A1c is 8.6 her diabetes is poorly controlled. Outpatient follow-up for medication adjustment. Qualifiers: Diabetes mellitus complication status: with kidney complications Diabetes mellitus complication detail: with chronic kidney disease Diabetes mellitus manager long term care insulin use: with manager long term care use Chronic kidney disease stage: stage 3 (moderate) Qualified Code(s): E11.22 - Type 2 diabetes mellitus with diabetic chronic kidney disease; N18.3 - Chronic kidney disease, stage 3 ( moderate); Z79.4 - long term care social worker (current) use of insulin (4) Chronic kidney disease Current Visit: Yes Status: Acute Assessment and plan: Creatinine improving from yesterday. Avoid nephrotoxins including NSAIDs. Hold VICKIE inhibitor and ARB. Qualifiers: Chronic kidney disease stage: stage 3 (moderate) Qualified Code(s): N18.3 - Chronic kidney disease, stage 3 (moderate) (5) CAD (coronary artery disease) Current Visit: No Status: Chronic Qualifiers: Coronary Disease-Associated Artery/Lesion type: [place] artery [place] vs. transplanted heart: [place] heart Associated angina: angina presence unspecified Qualified Code(s): I25.10 - Atherosclerotic heart disease of [place] coronary artery without angina pectoris (6) Hypothyroidism Current Visit: Yes Status: Acute Qualifiers: Hypothyroidism type: acquired Qualified Code(s): E03.9 - Hypothyroidism, unspecified - Subjective Interval history: Reports feeling generally IMPROVED FROM Yesterday, denies palpitations and chest pain, denies shortness of breath and nausea has resolved since yesterday. - Constitutional Vitals: Temp Pulse Resp BP Pulse Ox 98.3 F 70 16 132/63 95 09/18/16 16:00 09/18/16 16:00 09/18/16 16:00 09/18/16 16:00 09/18/16 16:00 General appearance: Present: A&O X 3, morbidly obese, pleasant, no acute distress Exam: Morbidly obese - Respiratory Respiratory exam: Present: CTAB. Absent: accessory muscle use, rales, rhonchi, wheezes - Cardiovascular Cardiovascular exam: Present: RRR, +S1, +S2. Absent: diastolic murmur, gallop, rubs, systolic murmur - GI/Abdominal GI/Abdominal exam: Present: normal bowel sounds, soft, no peritoneal signs. Absent: distended, tenderness - Skin Skin exam: Present: dry, intact Internal Medicine: Result - Labs CBC & Chem 7: 09/18/16 06:15 09/18/16 06:15 Labs: Short CBC 09/18/16 Range/Units 06:15 WBC 8.6 (4.3-11.1) K/mcL Hgb 14.2 (11.5-15.4) g/dL Hct 44.6 (35.3-44.9) % Plt Count 205 (140-400) K/mcL Neutrophils # 5.0 (1.6-8.9) K/mcL BMP 09/18/16 06:15 Sodium 141 Potassium 4.6 H Chloride 107 Carbon Dioxide 25 BUN 29 H D Creatinine 1.41 H Glucose 196 H Calcium 9.2 - ABG Interpretation ABG results: PT/INR, D-dimer PT 11.6 Seconds (9.4-12.1) 09/16/16 12:54 Consult Discharge Plan - Plan Instructions: Atrial Fibrillation (DC), Chest Pain (DC), Diabetes Mellitus Type 2 in Adults (DC) Referrals: John Madison Jr, MD [Primary Care Provider] -
[2016-09-18] MEDS ORDERED: *HR* Metoprolol 5 MG/5 ML VIAL IVP ONE (19:52)
--- NOTE | 2016-09-18 20:03 | Internal Med Progress Note ---
Date of Encounter: 09/18/16 Time of Encounter: 13:00 - Assessment and plan (1) Morbid obesity with BMI of 60.0-69.9, adult Current Visit: Yes Status: Acute Assessment and plan: Outpatient follow-up for weight loss regimen. Bariatric bed. (2) New onset atrial fibrillation Current Visit: Yes Status: Acute Assessment and plan: Currently switched back to sinus rhythm per my review her telemetry shows a sinus at 80 bpm. She has gone back and forth into A. fib and sinus. Increase metoprolol to 50 mg daily. Continue with liquids. Monitor on telemetry. ct eliquis> (3) Type 2 diabetes mellitus Current Visit: Yes Status: Acute Assessment and plan: Insulin Levemir and insulin sliding scale. A1c is 8.6 her diabetes is poorly controlled. Outpatient follow-up for medication adjustment. Qualifiers: Diabetes mellitus complication status: with kidney complications Diabetes mellitus complication detail: with chronic kidney disease Diabetes mellitus custodial insulin use: with custodial use Chronic kidney disease stage: stage 3 (moderate) Qualified Code(s): E11.22 - Type 2 diabetes mellitus with diabetic chronic kidney disease; N18.3 - Chronic kidney disease, stage 3 ( moderate); Z79.4 - jail (current) use of insulin (4) Chronic kidney disease Current Visit: Yes Status: Acute Assessment and plan: Creatinine improving from yesterday. Avoid nephrotoxins including NSAIDs. Hold VICKIE inhibitor and ARB. Check creatinine in the morning. Qualifiers: Chronic kidney disease stage: stage 3 (moderate) Qualified Code(s): N18.3 - Chronic kidney disease, stage 3 (moderate) (5) CAD (coronary artery disease) Current Visit: No Status: Chronic Qualifiers: Coronary Disease-Associated Artery/Lesion type: [place] artery [place] vs. transplanted heart: [place] heart Associated angina: angina presence unspecified Qualified Code(s): I25.10 - Atherosclerotic heart disease of [place] coronary artery without angina pectoris (6) Hypothyroidism Current Visit: Yes Status: Acute Assessment and plan: TSH is low. Both free T4 and total T3 are within normal limits which suggests that she is euthyroid. She does not have symptoms of hyper or hypothyroidism or hyperthyroidism. Qualifiers: Hypothyroidism type: acquired Qualified Code(s): E03.9 - Hypothyroidism, unspecified - Subjective Interval history: Reports than generalized weakness and nausea have improved over last 2 days. Her shortness of breath is mild at rest. She has not had any fever. No nausea or vomiting.. - Constitutional Vitals: Temp Pulse Resp BP Pulse Ox 98.3 F 135 18 142/117 94 L 09/18/16 16:00 09/18/16 19:55 09/18/16 19:55 09/18/16 19:55 09/18/16 19:55 General appearance: Present: A&O X 3, morbidly obese, pleasant, no acute distress - Respiratory Respiratory exam: Present: CTAB. Absent: accessory muscle use, rales, rhonchi, wheezes - Cardiovascular Cardiovascular exam: Present: RRR, +S1, +S2. Absent: diastolic murmur, gallop, rubs, systolic murmur - GI/Abdominal GI/Abdominal exam: Present: normal bowel sounds, soft, no peritoneal signs. Absent: distended, tenderness - Skin Skin exam: Present: dry, intact Internal Medicine: Result - Labs CBC & Chem 7: 09/18/16 06:15 09/18/16 06:15 Labs: Short CBC 09/18/16 Range/Units 06:15 WBC 8.6 (4.3-11.1) K/mcL Hgb 14.2 (11.5-15.4) g/dL Hct 44.6 (35.3-44.9) % Plt Count 205 (140-400) K/mcL Neutrophils # 5.0 (1.6-8.9) K/mcL BMP 09/18/16 06:15 Sodium 141 Potassium 4.6 H Chloride 107 Carbon Dioxide 25 BUN 29 H D Creatinine 1.41 H Glucose 196 H Calcium 9.2 - ABG Interpretation ABG results: PT/INR, D-dimer PT 11.6 Seconds (9.4-12.1) 09/16/16 12:54 Consult Discharge Plan - Plan Instructions: Atrial Fibrillation (DC), Chest Pain (DC), Diabetes Mellitus Type 2 in Adults (DC) Referrals: John Madison Jr, MD [Primary Care Provider] -
[2016-09-18] MEDS: Ondansetron ODT 4 MG TAB.RAPDIS SL PRN (20:25)
[2016-09-18] MEDS: *HR* HYDROcodone/Acet 10/325 mg TABLET PO PRN (20:25)
[2016-09-19] MEDS: *HR* HYDROcodone/Acet 10/325 mg TABLET PO PRN (03:20)
[2016-09-19 05:02] LABS: Basophils % 0.5 %; Eosinophils # 0.2 K/mcL (0.0-0.6); Eosinophils % 2.9 %; Hematocrit 43.8 % (35.3-44.9); Hemoglobin 14.2 g/dL (11.5-15.4); Immature Granulocytes % 0.4 % (0-4); Lymphocytes # 2.1 K/mcL (0.6-4.6); Lymphocytes % 24.7 %; Mean Corpuscular HGB Conc 32.4 g/dL (31.6-35.5); Mean Corpuscular Hemoglobin 28.7 pg (28.0-33.3); Mean Corpuscular Volume 88.5 fL (83.0-100.0); Mean Platelet Volume 10.5 fL (9.4-12.4); Monocytes # 0.8 K/mcL (0.0-1.3); Neutrophils # 5.2 K/mcL (1.6-8.9); Platelet Count 216 K/mcL (140-400); Red Blood Count 4.95 M/mcL (3.82-4.97); Segmented Neutrophils % 61.5 %
[2016-09-19 05:16] LABS: Calcium 9.3 mg/dL (8.6-10.8); Potassium 4.5 mEq/L (3.5-4.5)
--- NOTE | 2016-09-19 06:58 | Electrocardiograph Report ---
[place] [id number] Test Date: 2016-09-18 Pat Name: Rima Diaz Department: 111 Room: 2N2 Gender: F Fitness Manager: GENESIS : 1940 Requested By: Moi Roe Order Number: [id number] Reading MD: Dallas Ruelas MD Measurements Intervals [place] Rate: 121 P: [place]: 0 QRS: 25 QRSD: 88 T: 9 QT: 306 QTc: 378 Interpretive Statements ATRIAL FIBRILLATION WITH RAPID VENTRICULAR RESPONSE Electronically Signed On 09-19-2016 6:57:36 EDT by Dallas Ruelas MD
[2016-09-19] MEDS ORDERED: Metoprolol XL (24 HR) Succ 50 MG TAB.ER.24H PO SCH (09:00)
[2016-09-19] MEDS: Furosemide 20 MG TABLET PO SCH (09:14)
[2016-09-19] MEDS: amLODIPine 5 MG TABLET PO SCH (09:14)
[2016-09-19] MEDS: APIXABAN 5 MG TABLET PO SCH (09:14)
[2016-09-19] MEDS: Isosorbide MONOnitrate (24 HR) 60 MG TAB.ER.24H PO SCH (09:14)
[2016-09-19] MEDS: Aspirin 81 MG TAB.CHEW PO SCH (09:14)
[2016-09-19] MEDS: Insulin DETEMIR 100 UNIT/ML X5UNITS SQ SCH (09:15)
[2016-09-19] MEDS: Insulin LISPRO 300 UNITS/3 ML VIAL SQ SCH ×6 (09:15→17:05)
[2016-09-19] MEDS: CAPTOPRIL 50 MG PO SCH (09:16)
[2016-09-19 15:14] VITALS: BP 116/49
--- NOTE | 2016-09-19 15:59 | Discharge Summary ---
Date of Encounter: 09/19/16 Time of Encounter: 11:48 - Discharge Diagnosis (1) Morbid obesity with BMI of 60.0-69.9, adult Priority: Secondary Status: Acute (2) New onset atrial fibrillation Priority: Primary Status: Acute (3) Type 2 diabetes mellitus Priority: Secondary Status: Acute Qualifiers: Diabetes mellitus complication status: with kidney complications Diabetes mellitus complication detail: with chronic kidney disease Diabetes mellitus detention insulin use: with detention use Chronic kidney disease stage: stage 3 (moderate) Qualified Code(s): E11.22 - Type 2 diabetes mellitus with diabetic chronic kidney disease; N18.3 - Chronic kidney disease, stage 3 ( moderate); Z79.4 - [facility] (current) use of insulin (4) Chronic kidney disease Priority: Secondary Status: Acute Qualifiers: Chronic kidney disease stage: stage 3 (moderate) Qualified Code(s): N18.3 - Chronic kidney disease, stage 3 (moderate) (5) CAD (coronary artery disease) Priority: Secondary Status: Chronic Qualifiers: Coronary Disease-Associated Artery/Lesion type: [place] artery [place] vs. transplanted heart: [place] heart Associated angina: angina presence unspecified Qualified Code(s): I25.10 - Atherosclerotic heart disease of [place] coronary artery without angina pectoris (6) Hypothyroidism Priority: Secondary Status: Acute Qualifiers: Hypothyroidism type: acquired Qualified Code(s): E03.9 - Hypothyroidism, unspecified - Discharge Medications Prescriptions: Apixaban [Eliquis] 5 mg PO BID #60 tablet Furosemide [Lasix] 20 mg PO DAILY #30 tablet Metoprolol XL (24 HR) Succ [Toprol Xl] 50 mg PO BID #60 tab.er.24h Home Medications: Aspirin 81 mg PO DAILY 09/16/16 [History] Atenolol/Chlorthalidone [Tenoretic 50 Tablet] 1 tab PO DAILY 09/16/16 [History] Calcitriol [Rocaltrol] 0.25 mcg PO DAILY 09/16/16 [History] Cyclobenzaprine [Flexeril] 10 mg PO BID 09/16/16 [History] Duloxetine HCl [Cymbalta] 60 mg PO DAILY 09/16/16 [History] Ergocalciferol (VITAMIN D2) [Vitamin D2] 50,000 unit PO QWEEK 09/16/16 [History] HYDROcodone/Acet 10/325 mg [[place] 10-325 mg] 1 tab PO BID PRN 09/16/16 [History] Insulin Glargine,Hum.rec.anlog [Lantus Solostar] 9 unit SQ BID 09/16/16 [History ] Insulin LISPRO [Humalog] 40 unit SQ TID 09/16/16 [History] Isosorbide MONOnitrate (24 HR) [Imdur] 60 mg PO DAILY 09/16/16 [History] Levothyroxine Sodium [Levo-T] 200 mcg PO DAILY 09/16/16 [History] Simvastatin [Zocor] 40 mg PO DAILY 09/16/16 [History] Zolpidem [Ambien] 10 mg PO HS 09/16/16 [History] Apixaban [Eliquis] 5 mg PO BID #60 tablet 09/19/16 [Rx] Furosemide [Lasix] 20 mg PO DAILY #30 tablet 09/19/16 [Rx] Metoprolol XL (24 HR) Succ [Toprol Xl] 50 mg PO BID #60 tab.er.24h 09/19/16 [Rx] Allergies/Adverse Reactions: Allergies Tetracycline Adverse Reaction (Verified 09/16/16 12:38) Difficulty Breathing tape Adverse Reaction (Uncoded 09/16/16 12:38) See Comments Procedures/tests Complete & Pending: Procedures Performed prior 72 hours Category Date Time Status ECG 12 lead ECG [ECG] Routine Y 09/18/16 00:50 Completed EV echocardiogram Routine Y 09/17/16 19:45 Completed Date of admission: 09/16/16 18:12 Primary care physician: John Madison Jr, MD Consults: 09/16/16 19:45 Consult to Cardiology [CONS] Routine Comment: Consulting Provider: Cardiology Mary Reason for Consult: 76F with new onset afib, Call Completed: No - Patient Status Disposition: Home, Self-Care Condition: Fair Functional capacity at discharge: uses cane/walker Overall status at discharge: patient is back to baseline - Discharge Instructions Instructions: Metoprolol (By mouth), Apixaban (By mouth), Atrial Fibrillation ( DC), Chest Pain (DC), Diabetes Mellitus Type 2 in Adults (DC) Follow Up With: John Madison Jr, MD [Primary Care Provider] - (attempted to call, patient needs to call for one week follow up) - Diet and Activity Activity: ambulate only with your walker Diet: advance to your usual diet, diabetic diet, low salt diet Hospital course: Ms. Diaz is a 76 year old female with COPD, coronary artery disease, type 2 diabetes, hypertension, hyperlipidemia, chronic kidney disease presented to the emergency department today with complaint of chest pain and shortness of breath for 3 days. She reports she has constant dull ache in the middle of her chest with occasional increase in pain that is sharp and radiates to her left jaw. She also reports fatigue, headache, postnasal drip, and nausea. She denies any abdominal pain, diarrhea, lightheadedness, palpitations, cough. She denies any fever, chills, sweats. Evaluation in the emergency department included a chest x-ray which showed pulmonary congestion. White blood cell count was elevated to 13.5. Creatinine was 1.7, but consistent with her baseline creatinine of 1.6 from 2013 and with her history of chronic kidney disease. BNP was elevated at 378. Troponin was negative at 0.01. EKG showed patient was in A. fib with RVR, but returned to sinus rhythm spontaneously. The patient was admitted to the medical service. She was started on parenteral anticoagulation. Cardiology was consulted. She had an echocardiogram done. Cardiology recommended starting Eliquis. She had thyroid studies which revealed low TSH but normal free T4. Echocardiogram revealed normal ejection fraction and mild diastolic dysfunction. She was started on metoprolol succinate which she tolerated well. She continued to have episodes of atrial fibrillation with rapid ventricular response recorded on telemetry particularly at nighttime. Her metoprolol dose was increased to 25 mg twice a day. She currently medically stable and will be discharged home with a recommendation to follow-up closely with her primary care physician. - Time Spent with Patient Total time spent providing and/or coordinating discharge services: Less than 30 minutes - Constitutional Vitals: Temp Pulse Resp BP Pulse Ox 97.9 F 68 16 116/49 96 09/19/16 15:12 09/19/16 15:12 09/19/16 15:12 09/19/16 15:12 09/19/16 15:12 General appearance: Present: A&O X 3, morbidly obese, pleasant, no acute distress - Respiratory Respiratory exam: Present: CTAB. Absent: accessory muscle use, rales, rhonchi, wheezes - Cardiovascular Cardiovascular exam: Present: RRR, +S1, +S2. Absent: diastolic murmur, gallop, rubs, systolic murmur - GI/Abdominal GI/Abdominal exam: Present: normal bowel sounds, soft, no peritoneal signs. Absent: distended, tenderness - Extremities Exam Extremities exam: Present: warm, radial pulses palpable and symetrical. Absent : calf tenderness, cyanotic, pedal edema - VTE Documentation of Mechanical Device: Graduated compression elastic hosiery
[2016-09-19] MEDS ORDERED: FLU VACC QS2016-17 36MOS UP/PF 0.5 ML SYRINGE IM ONE (17:38)
== END 2016-09-19 18:15 | disposition home or self-care (01) | DRG 308 ==
LOC: EMEROO 12:11 → 2NENU 12:11 → SUATTDRO 18:12
PROVIDERS: ADMIT Nurse Practitioner Acute Care; ATTEND Internal Medicine

== ENCOUNTER 2019-12-27 14:48 | Inpatient (IN) ==
[2019-12-27 15:27] LABS: Basophils # 0.1 K/mcL (0.0-0.2); Basophils % 0.7 %; Eosinophils % 1.2 %; Hematocrit 32.6 % (35.3-44.9); Hemoglobin 8.7 g/dL (11.5-15.4); Immature Granulocytes % 0.6 % (0-4); Lymphocytes # 1.7 K/mcL (0.6-4.6); Lymphocytes % 13.9 %; Mean Corpuscular HGB Conc 26.7 g/dL (31.6-35.5); Mean Corpuscular Hemoglobin 18.8 pg (28.0-33.3); Mean Corpuscular Volume 70.4 fL (83.0-100.0); Mean Platelet Volume 9.8 fL (9.4-12.4); Monocytes % 8.5 %; Neutrophils # 9.1 K/mcL (1.6-8.9); Platelet Count 321 K/mcL (140-400); Red Blood Count 4.63 M/mcL (3.82-4.97); Red Cell Distribution Width 19.4 % (11.5-14.5); Segmented Neutrophils % 75.1 %; White Blood Count 12.1 K/mcL (4.3-11.1)
[2019-12-27 15:44] LABS: Eosinophils # 0.2 K/mcL (0.0-0.6)
[2019-12-27 15:50] LABS: BUN/Creatinine Ratio 23 (6-26); Blood Urea Nitrogen 62 mg/dL (8-23); Calcium 9.5 mg/dL (8.6-10.3); Carbon Dioxide 25 mEq/L (23-29); Chloride 101 mEq/L (98-107); Glucose 307 mg/dL (70-105); Osmolality,Calculated 309 (280-300); Sodium 135 mEq/L (136-145); Troponin I < 0.03 ng/mL (< 0.04); eGFR For African Americans 21 (> 60); eGFR For Non-African Americans 17 (> 60)
[2019-12-27 16:06] LABS: Hypochromasia Present (Not Present)
[2019-12-27 16:06] LABS: Bilirubin,Urine Negative (Negative); Blood,Urine Negative (Negative); Clarity,Urine Clear (Clear); Color,Urine Yellow (Yellow); Glucose,Urine (UA) >=1000 mg/dL (Normal); Ketones,Urine Negative (Negative); Leukocyte Esterase,Urine Negative (Negative); Nitrite,Urine Negative (Negative); Protein,Urine Negative (Neg-Trace); Specific Gravity,Urine 1.015 (1.010-1.025); Urobilinogen,Urine Normal (Normal)
[2019-12-27 16:41] LABS: Alanine Aminotransferase 10 Units/L (7-52); Albumin 3.9 g/dL (3.5-5.7); Albumin/Globulin Ratio 1.2 (1.1-2.2); Alkaline Phosphatase 88 Units/L (34-104); Aspartate Amino Transferase 11 Units/L (13-39); Bilirubin,Direct 0.2 mg/dL (0.0-0.2); Bilirubin,Indirect 0.2 mg/dL (0.0-1.0); Bilirubin,Total 0.4 mg/dL (0.3-1.0); Globulin 3.3 g/dL (2.4-3.5); Lipase 22 Units/L (11-82); Total Protein 7.2 g/dL (6.4-8.9)
[2019-12-27] MEDS ORDERED: Azithromycin 250 MG TABLET PO ONE (17:02)
[2019-12-27] MEDS ORDERED: cefTRIAXone 1,000 MG in Water for inj. (sterile) 10 ML IVP ONE (17:02)
[2019-12-27] MEDS ORDERED: Ondansetron ODT 4 MG TAB.RAPDIS SL PRN (17:27)
[2019-12-27] MEDS ORDERED: Naloxone 0.4 MG/ML INJ IVP PRN (17:27)
[2019-12-27] MEDS ORDERED: Acetaminophen 325 MG TABLET PO PRN (17:27)
[2019-12-27] MEDS ORDERED: Nitroglycerin 0.4 MG TAB.SUBL SL PRN (17:32)
[2019-12-27] MEDS ORDERED: D5% in Water 1,000 ML IVC PRN (17:33)
[2019-12-27] MEDS ORDERED: *HR* Dextrose 50 % in Water (Vial) 50 ML VIAL IVP PRN (17:33)
[2019-12-27] MEDS ORDERED: Dextrose Gel 15 GM/37.5 ML TUBE PO PRN ×2 (17:33)
[2019-12-27 18:00] LABS: Magnesium 2.7 mg/dL (1.6-2.6)
[2019-12-27 18:38] LABS: Procalcitonin 0.11 ng/mL (0.00-0.15)
[2019-12-27] MEDS: 0.9 % Sodium Chloride 1,000 ML IVC SCH (18:56)
[2019-12-27 19:20] LABS: % Iron Saturation 2 % (15-50); Iron 12 mcg/dL (50-170); Transferrin 374 mg/dL (203-362)
[2019-12-27 19:43] LABS: Ferritin < 8 ng/mL (10-120)
[2019-12-27 19:50] LABS: Folate 11.2 ng/mL (3.0-16.0)
[2019-12-27] MEDS: Insulin LISPRO 300 UNITS/3 ML VIAL SQ SCH (20:49)
[2019-12-28] MEDS: 0.9 % Sodium Chloride 1,000 ML IVC SCH (01:51)
[2019-12-28 02:58] LABS: Basophils # 0.1 K/mcL (0.0-0.2); Basophils % 0.6 %; Eosinophils # 0.2 K/mcL (0.0-0.6); Eosinophils % 1.7 %; Hematocrit 32.6 % (35.3-44.9); Hemoglobin 8.6 g/dL (11.5-15.4); Immature Granulocytes % 0.4 % (0-4); Lymphocytes # 2.1 K/mcL (0.6-4.6); Lymphocytes % 20.2 %; Mean Corpuscular HGB Conc 26.4 g/dL (31.6-35.5); Mean Corpuscular Hemoglobin 18.5 pg (28.0-33.3); Mean Corpuscular Volume 70.3 fL (83.0-100.0); Mean Platelet Volume 9.8 fL (9.4-12.4); Monocytes # 1.1 K/mcL (0.0-1.3); Monocytes % 10.6 %; Neutrophils # 6.9 K/mcL (1.6-8.9); Platelet Count 322 K/mcL (140-400); Red Blood Count 4.64 M/mcL (3.82-4.97); Red Cell Distribution Width 19.5 % (11.5-14.5); Segmented Neutrophils % 66.5 %; White Blood Count 10.3 K/mcL (4.3-11.1)
[2019-12-28 03:15] LABS: Calcium 9.7 mg/dL (8.6-10.3); Potassium 4.3 mEq/L (3.5-5.1)
[2019-12-28 03:28] LABS: Acanthocytes 1+ (Not Present); Hypochromasia Present (Not Present); Platelet Estimate Normal (Normal)
[2019-12-28] MEDS ORDERED: *HR* LORazepam 0.5 MG TABLET PO PRN (07:10)
[2019-12-28] MEDS: Aspirin 81 MG TAB.CHEW PO SCH (08:36)
[2019-12-28] MEDS: Metoprolol 100 MG TABLET PO SCH ×2 (08:36→20:29)
[2019-12-28] MEDS: calcitrioL 0.25 MCG CAPSULE PO SCH (08:36)
[2019-12-28] MEDS: Apixaban 5 MG TABLET PO SCH ×2 (08:36→20:29)
[2019-12-28] MEDS: Isosorbide MONOnitrate (24 HR) 60 MG TAB.ER.24H PO SCH (08:36)
[2019-12-28] MEDS: Insulin LISPRO 300 UNITS/3 ML VIAL SQ SCH ×4 (08:37→20:30)
[2019-12-28] MEDS: Iron Sucrose Complex 250 MG in 0.9 % Sodium Chloride 250 ML IVPB SCH (12:50)
[2019-12-28] MEDS ORDERED: cefTRIAXone 1,000 MG in Water for inj. (sterile) 10 ML IVP SCH (17:00)
[2019-12-28] MEDS ORDERED: Azithromycin 500 MG in 0.9 % Sodium Chloride 250 ML IVPB SCH (17:00)
[2019-12-28] MEDS: *HR* OxyCODONE Immed Rel 5 MG TABLET PO PRN (17:03)
[2019-12-28] MEDS: Insulin DETEMIR 100 UNIT/ML X5UNITS SQ SCH (20:31)
[2019-12-29 05:43] LABS: Hematocrit 26.5 % (35.3-44.9); Hemoglobin 7.2 g/dL (11.5-15.4); Mean Corpuscular HGB Conc 27.2 g/dL (31.6-35.5); Mean Corpuscular Volume 69.9 fL (83.0-100.0); Mean Platelet Volume 9.6 fL (9.4-12.4); Platelet Count 260 K/mcL (140-400); Red Blood Count 3.79 M/mcL (3.82-4.97); Red Cell Distribution Width 19.5 % (11.5-14.5); White Blood Count 7.3 K/mcL (4.3-11.1)
[2019-12-29 06:04] LABS: Calcium 9.3 mg/dL (8.6-10.3); Potassium 4.1 mEq/L (3.5-5.1)
[2019-12-29] MEDS: *HR* OxyCODONE Immed Rel 5 MG TABLET PO PRN ×3 (06:04→20:52)
[2019-12-29] MEDS: Isosorbide MONOnitrate (24 HR) 60 MG TAB.ER.24H PO SCH (08:16)
[2019-12-29] MEDS: Apixaban 5 MG TABLET PO SCH (08:16)
[2019-12-29] MEDS: calcitrioL 0.25 MCG CAPSULE PO SCH (08:16)
[2019-12-29] MEDS: Metoprolol 100 MG TABLET PO SCH ×2 (08:17→20:52)
[2019-12-29] MEDS: Iron Sucrose Complex 250 MG in 0.9 % Sodium Chloride 250 ML IVPB SCH (08:17)
[2019-12-29] MEDS: Aspirin 81 MG TAB.CHEW PO SCH (08:17)
[2019-12-29] MEDS: Fluticasone Propionate Nasal 50 MCG/SPRAY BOTTLE NS SCH (08:18)
[2019-12-29] MEDS: Insulin LISPRO 300 UNITS/3 ML VIAL SQ SCH ×6 (08:18→20:54)
[2019-12-29] MEDS: Insulin DETEMIR 100 UNIT/ML X5UNITS SQ SCH ×2 (08:20→20:53)
[2019-12-29] MEDS: polyethylene glycoL 3350 17 GM POWD.PACK PO SCH (12:14)
[2019-12-29] MEDS: *HR* Heparin 5,000 UNIT/ML VIAL SQ SCH (17:07)
[2019-12-30 02:52] LABS: Hematocrit 27.3 % (35.3-44.9); Hemoglobin 7.5 g/dL (11.5-15.4); Mean Corpuscular HGB Conc 27.5 g/dL (31.6-35.5); Mean Corpuscular Hemoglobin 19.3 pg (28.0-33.3); Mean Corpuscular Volume 70.4 fL (83.0-100.0); Mean Platelet Volume 10.2 fL (9.4-12.4); Platelet Count 271 K/mcL (140-400); Red Blood Count 3.88 M/mcL (3.82-4.97); Red Cell Distribution Width 19.4 % (11.5-14.5); White Blood Count 9.1 K/mcL (4.3-11.1)
[2019-12-30 04:41] LABS: Calcium 9.4 mg/dL (8.6-10.3); Potassium 4.3 mEq/L (3.5-5.1)
[2019-12-30] MEDS: *HR* Heparin 5,000 UNIT/ML VIAL SQ SCH (05:13)
[2019-12-30] MEDS: Insulin DETEMIR 100 UNIT/ML X5UNITS SQ SCH (09:00)
[2019-12-30] MEDS: polyethylene glycoL 3350 17 GM POWD.PACK PO SCH (09:01)
[2019-12-30] MEDS: calcitrioL 0.25 MCG CAPSULE PO SCH (09:01)
[2019-12-30] MEDS: Isosorbide MONOnitrate (24 HR) 60 MG TAB.ER.24H PO SCH (09:01)
[2019-12-30] MEDS: Aspirin 81 MG TAB.CHEW PO SCH (09:01)
[2019-12-30] MEDS: Insulin LISPRO 300 UNITS/3 ML VIAL SQ SCH ×4 (09:01→12:18)
[2019-12-30] MEDS: Metoprolol 100 MG TABLET PO SCH (09:01)
[2019-12-30] MEDS: Fluticasone Propionate Nasal 50 MCG/SPRAY BOTTLE NS SCH (09:03)
[2019-12-30] MEDS: Iron Sucrose Complex 250 MG in 0.9 % Sodium Chloride 250 ML IVPB SCH (09:08)
[2019-12-30 11:08] VITALS: BP 101/39
[2020-01-03] MEDS ORDERED: Ergocalciferol (VIT D2) 50,000 UNIT (1.25MG) CAP PO SCH (09:00)
== END 2019-12-30 13:47 | disposition home health service (06) | DRG 683 ==
LOC: 2ANU 14:48 → EMEROOARM 14:48 → SUATTDRO 17:19 → 2ANU 18:22 → SUATTDRO 12-28 14:56
PROVIDERS: ADMIT Family Medicine; ATTEND Internal Medicine

== ENCOUNTER 2021-06-09 21:01 | Observation (INO) ==
[2021-06-09] MEDS ORDERED: *HR* HYDROcodone/Acet 5/325 mg TABLET PO ONE (21:32)
[2021-06-09] MEDS ORDERED: Tdap (Boostrix) Vaccine 0.5 ML SYRINGE IM ONE (23:46)
[2021-06-10] MEDS ORDERED: Ondansetron 4 MG/2 ML VIAL IVP PRN (00:42)
[2021-06-10] MEDS ORDERED: Naloxone 0.4 MG/ML INJ IVP PRN (00:42)
[2021-06-10] MEDS ORDERED: Dextrose Gel 15 GM/37.5 ML TUBE PO PRN ×2 (01:06)
[2021-06-10] MEDS ORDERED: *HR* Dextrose 50 % in Water (Syg) 50 ML SYRINGE IVP PRN (01:06)
[2021-06-10] MEDS ORDERED: D5% in Water 1,000 ML IVC PRN (01:06)
[2021-06-10 01:37] LABS: Basophils # 0.1 K/mcL (0.0-0.2); Basophils % 0.6 %; Eosinophils # 0.2 K/mcL (0.0-0.6); Eosinophils % 1.6 %; Hematocrit 50.8 % (35.3-44.9); Hemoglobin 16.2 g/dL (11.5-15.4); Immature Granulocytes % 0.8 % (0-4); Lymphocytes # 1.6 K/mcL (0.6-4.6); Lymphocytes % 15.4 %; Mean Corpuscular HGB Conc 31.9 g/dL (31.6-35.5); Mean Corpuscular Hemoglobin 32.8 pg (28.0-33.3); Mean Corpuscular Volume 102.8 fL (83.0-100.0); Mean Platelet Volume 10.3 fL (9.4-12.4); Monocytes # 1.1 K/mcL (0.0-1.3); Monocytes % 10.3 %; Neutrophils # 7.4 K/mcL (1.6-8.9); Platelet Count 156 K/mcL (140-400); Red Blood Count 4.94 M/mcL (3.82-4.97); Red Cell Distribution Width 15.7 % (11.5-14.5); Segmented Neutrophils % 71.3 %; White Blood Count 10.4 K/mcL (4.3-11.1)
[2021-06-10 02:03] LABS: Calcium 10.1 mg/dL (8.6-10.3); Potassium 5.5 mEq/L (3.5-5.1)
[2021-06-10] MEDS ORDERED: Insulin Human Regular 10 UNIT in 0.9 % Sodium Chloride 10 ML IV ONE (06:19)
[2021-06-10] MEDS ORDERED: *HR* Dextrose 50 % in Water (Syg) 50 ML SYRINGE IVP ONE (06:19)
[2021-06-10] MEDS: 0.9 % Sodium Chloride 1,000 ML IVC SCH ×2 (07:41→17:48)
[2021-06-10] MEDS: Metoprolol 100 MG TABLET PO SCH ×2 (08:19→20:13)
[2021-06-10] MEDS: Aspirin 81 MG TAB.CHEW PO SCH (08:19)
[2021-06-10] MEDS ORDERED: Morphine Sulfate 2 MG/ML SYRINGE IVP PRN (08:47)
[2021-06-10] MEDS ORDERED: Acetaminophen 325 MG TABLET PO PRN (08:48)
[2021-06-10] MEDS: Insulin LISPRO 300 UNITS/3 ML VIAL SUBQ SCH ×3 (09:46→17:49)
[2021-06-10 21:30] LABS: Potassium 4.7 mEq/L (3.5-5.1)
[2021-06-11] MEDS: Metoprolol 100 MG TABLET PO SCH ×2 (07:57→20:31)
[2021-06-11] MEDS: Nystatin POWDER 30 GM BOTTLE TP SCH ×3 (07:57→20:31)
[2021-06-11] MEDS: Aspirin 81 MG TAB.CHEW PO SCH (07:57)
[2021-06-11] MEDS: Insulin LISPRO 300 UNITS/3 ML VIAL SUBQ SCH ×3 (07:57→16:46)
[2021-06-11] MEDS ORDERED: *HR* LORazepam 0.5 MG TABLET PO PRN (08:18)
[2021-06-11] MEDS ORDERED: Ergocalciferol (VIT D2) 50,000 UNIT (1.25MG) CAP PO SCH (09:00)
[2021-06-11] MEDS: Isosorbide MONOnitrate (24 HR) 60 MG TAB.ER.24H PO SCH (09:27)
[2021-06-11] MEDS: polyethylene glycoL 3350 17 GM POWD.PACK PO SCH (09:27)
[2021-06-11] MEDS: Furosemide 20 MG TABLET PO SCH (12:02)
[2021-06-12] MEDS: Isosorbide MONOnitrate (24 HR) 60 MG TAB.ER.24H PO SCH (08:07)
[2021-06-12] MEDS: Furosemide 20 MG TABLET PO SCH (08:07)
[2021-06-12] MEDS: Aspirin 81 MG TAB.CHEW PO SCH (08:07)
[2021-06-12] MEDS: Metoprolol 100 MG TABLET PO SCH ×2 (08:07→20:46)
[2021-06-12] MEDS: Insulin LISPRO 300 UNITS/3 ML VIAL SUBQ SCH ×3 (08:07→17:01)
[2021-06-12] MEDS: polyethylene glycoL 3350 17 GM POWD.PACK PO SCH (08:07)
[2021-06-12] MEDS: Nystatin POWDER 30 GM BOTTLE TP SCH ×3 (08:08→20:48)
[2021-06-12] MEDS ORDERED: *HR* HYDROmorphone 2 MG/ML SYRINGE IVP ONE (11:08)
[2021-06-12] MEDS ORDERED: *HR* HYDROmorphone (PF) 1 MG/ML SYRINGE IVP PRN (11:08)
[2021-06-12] MEDS ORDERED: *HR* OxyCODONE Immed Rel 5 MG TABLET PO PRN ×2 (11:10→14:56)
[2021-06-12] MEDS ORDERED: *HR* OxyCODONE Immed Rel 15 MG TABLET PO PRN (11:10)
[2021-06-12] MEDS ORDERED: *HR* HYDROmorphone (PF) 1 MG/ML SYRINGE IVP ONE (11:17)
[2021-06-12] MEDS ORDERED: *HR* LORazepam 1 MG TABLET PO PRN (14:58)
[2021-06-12] MEDS: *HR* OxyCODONE Immed Rel 5 MG TABLET PO PRN ×2 (15:14→22:46)
[2021-06-12] MEDS ORDERED: Diclofenac Sodium [Voltaren] 100 GM Gel..Gram. TP PRN (18:49)
[2021-06-12] MEDS: *HR* HYDROmorphone (PF) 1 MG/ML SYRINGE IVP PRN (20:46)
[2021-06-13 03:26] LABS: Calcium 9.4 mg/dL (8.6-10.3); Potassium 4.6 mEq/L (3.5-5.1)
[2021-06-13] MEDS: *HR* OxyCODONE Immed Rel 5 MG TABLET PO PRN (05:57)
[2021-06-13] MEDS: polyethylene glycoL 3350 17 GM POWD.PACK PO SCH (07:37)
[2021-06-13] MEDS: Aspirin 81 MG TAB.CHEW PO SCH (07:37)
[2021-06-13] MEDS: Metoprolol 100 MG TABLET PO SCH ×2 (07:37→21:23)
[2021-06-13] MEDS: calcitrioL 0.25 MCG CAPSULE PO SCH (07:37)
[2021-06-13] MEDS: Isosorbide MONOnitrate (24 HR) 60 MG TAB.ER.24H PO SCH (07:37)
[2021-06-13] MEDS: Furosemide 20 MG TABLET PO SCH (07:37)
[2021-06-13] MEDS: Insulin LISPRO 300 UNITS/3 ML VIAL SUBQ SCH ×4 (07:39→22:14)
[2021-06-13] MEDS: Nystatin POWDER 30 GM BOTTLE TP SCH ×3 (07:40→21:24)
[2021-06-13] MEDS: FERROUS SULFATE 142 MG PO SCH (07:41)
[2021-06-13] MEDS: NALOXEGOL OXALATE 25 MG PO SCH (07:41)
[2021-06-13] MEDS: Insulin DETEMIR 100 UNIT/ML X5UNITS SUBQ SCH ×2 (09:26→21:59)
[2021-06-13] MEDS ORDERED: *HR* HYDROcodone/Acet 10/325 mg TABLET PO SCH (12:15)
[2021-06-13] MEDS: *HR* HYDROcodone/Acet 10/325 mg TABLET PO SCH ×2 (14:05→19:23)
[2021-06-13] MEDS: *HR* HYDROmorphone (PF) 1 MG/ML SYRINGE IVP PRN (22:03)
[2021-06-14] MEDS: *HR* HYDROcodone/Acet 10/325 mg TABLET PO SCH ×4 (02:30→20:43)
[2021-06-14] MEDS: *HR* HYDROmorphone (PF) 1 MG/ML SYRINGE IVP PRN ×2 (06:04→10:18)
[2021-06-14 07:38] LABS: Calcium 9.6 mg/dL (8.6-10.3); Potassium 4.1 mEq/L (3.5-5.1)
[2021-06-14] MEDS: Aspirin 81 MG TAB.CHEW PO SCH (08:25)
[2021-06-14] MEDS: Insulin DETEMIR 100 UNIT/ML X5UNITS SUBQ SCH ×2 (08:25→22:04)
[2021-06-14] MEDS: calcitrioL 0.25 MCG CAPSULE PO SCH (08:25)
[2021-06-14] MEDS: Isosorbide MONOnitrate (24 HR) 60 MG TAB.ER.24H PO SCH (08:25)
[2021-06-14] MEDS: Metoprolol 100 MG TABLET PO SCH ×2 (08:25→20:43)
[2021-06-14] MEDS: polyethylene glycoL 3350 17 GM POWD.PACK PO SCH (08:26)
[2021-06-14] MEDS: Nystatin POWDER 30 GM BOTTLE TP SCH ×3 (08:26→20:44)
[2021-06-14] MEDS: Insulin LISPRO 300 UNITS/3 ML VIAL SUBQ SCH ×4 (08:27→22:04)
[2021-06-14] MEDS: FERROUS SULFATE 142 MG PO SCH (08:28)
[2021-06-14] MEDS: NALOXEGOL OXALATE 25 MG PO SCH (08:28)
[2021-06-15] MEDS: *HR* HYDROcodone/Acet 10/325 mg TABLET PO SCH ×4 (02:42→20:33)
[2021-06-15] MEDS: *HR* HYDROmorphone (PF) 1 MG/ML SYRINGE IVP PRN ×3 (04:39→23:06)
[2021-06-15 05:30] LABS: Calcium 9.7 mg/dL (8.6-10.3); Potassium 4.3 mEq/L (3.5-5.1)
[2021-06-15] MEDS: Insulin LISPRO 300 UNITS/3 ML VIAL SUBQ SCH ×4 (08:05→20:34)
[2021-06-15] MEDS: Aspirin 81 MG TAB.CHEW PO SCH (08:06)
[2021-06-15] MEDS: Insulin DETEMIR 100 UNIT/ML X5UNITS SUBQ SCH ×2 (08:06→20:36)
[2021-06-15] MEDS: polyethylene glycoL 3350 17 GM POWD.PACK PO SCH (08:06)
[2021-06-15] MEDS: calcitrioL 0.25 MCG CAPSULE PO SCH (08:07)
[2021-06-15] MEDS: FERROUS SULFATE 142 MG PO SCH (08:07)
[2021-06-15] MEDS: Metoprolol 100 MG TABLET PO SCH ×2 (08:07→20:34)
[2021-06-15] MEDS: NALOXEGOL OXALATE 25 MG PO SCH (08:07)
[2021-06-15] MEDS: Isosorbide MONOnitrate (24 HR) 60 MG TAB.ER.24H PO SCH (08:07)
[2021-06-15] MEDS: Nystatin POWDER 30 GM BOTTLE TP SCH ×3 (08:08→20:33)
[2021-06-16] MEDS: *HR* HYDROcodone/Acet 10/325 mg TABLET PO SCH ×4 (03:31→19:59)
[2021-06-16] MEDS: Insulin LISPRO 300 UNITS/3 ML VIAL SUBQ SCH ×4 (08:34→20:00)
[2021-06-16] MEDS: Insulin DETEMIR 100 UNIT/ML X5UNITS SUBQ SCH ×2 (08:34→19:59)
[2021-06-16] MEDS: Metoprolol 100 MG TABLET PO SCH ×2 (08:35→19:58)
[2021-06-16] MEDS: Isosorbide MONOnitrate (24 HR) 60 MG TAB.ER.24H PO SCH (08:35)
[2021-06-16] MEDS: NALOXEGOL OXALATE 25 MG PO SCH (08:35)
[2021-06-16] MEDS: Aspirin 81 MG TAB.CHEW PO SCH (08:35)
[2021-06-16] MEDS: polyethylene glycoL 3350 17 GM POWD.PACK PO SCH (08:35)
[2021-06-16] MEDS: calcitrioL 0.25 MCG CAPSULE PO SCH (08:35)
[2021-06-16] MEDS: Nystatin POWDER 30 GM BOTTLE TP SCH ×3 (08:36→21:59)
[2021-06-16] MEDS: FERROUS SULFATE 142 MG PO SCH (08:36)
[2021-06-17] MEDS: *HR* HYDROcodone/Acet 10/325 mg TABLET PO SCH ×2 (02:02→08:15)
[2021-06-17] MEDS: Insulin LISPRO 300 UNITS/3 ML VIAL SUBQ SCH ×2 (08:13→12:47)
[2021-06-17] MEDS: Aspirin 81 MG TAB.CHEW PO SCH (08:14)
[2021-06-17] MEDS: Insulin DETEMIR 100 UNIT/ML X5UNITS SUBQ SCH (08:14)
[2021-06-17] MEDS: Isosorbide MONOnitrate (24 HR) 60 MG TAB.ER.24H PO SCH (08:14)
[2021-06-17] MEDS: polyethylene glycoL 3350 17 GM POWD.PACK PO SCH (08:15)
[2021-06-17] MEDS: Metoprolol 100 MG TABLET PO SCH (08:15)
[2021-06-17] MEDS: calcitrioL 0.25 MCG CAPSULE PO SCH (08:15)
[2021-06-17] MEDS: NALOXEGOL OXALATE 25 MG PO SCH (08:16)
[2021-06-17] MEDS: Nystatin POWDER 30 GM BOTTLE TP SCH (08:16)
[2021-06-17] MEDS: FERROUS SULFATE 142 MG PO SCH (08:16)
[2021-06-17] MEDS ORDERED: Insulin DETEMIR 100 UNIT/ML X5UNITS SUBQ SCH (09:00)
[2021-06-17] MEDS ORDERED: Moderna Covid-19 Vaccine 100MCG/0.5mL IM ONE (09:45)
[2021-06-17] MEDS ORDERED: FLU Vac QV 21-22 (6Month+)/PF 0.5 ML SYRINGE IM ONE (09:45)
[2021-06-17 10:37] LABS: Influenza A PCR Negative (Negative); Influenza B PCR Negative (Negative); Resp. Syncytial Virus PCR Negative (Negative)
[2021-06-17 11:25] LABS: SARS-CoV-2 by PCR (In House) Negative (Negative)
[2021-06-17] MEDS: *HR* HYDROmorphone (PF) 1 MG/ML SYRINGE IVP PRN (12:43)
[2021-06-17 12:50] VITALS: BP 152/69; PULSE 71; TEMP 97.8; O2SAT 96
[2021-06-17] MEDS ORDERED: Artificial Tears SOLN 15 ML BOTTLE BOTH EYES SCH (23:45)
== END 2021-06-17 13:40 ==
LOC: EMEROOARM 21:01 → 4WAOSI 21:01 → SUATTDRO 06-10 01:11 → 4WAOSI 06-10 01:57
PROVIDERS: ADMIT Internal Medicine; ATTEND Student in an Organized Health Care Education/Training Program